=== PATIENT | female | born 1975 | race Caucasian/White ===

== ENCOUNTER 2016-12-27 09:12 | Day surgery (SDC) | payer OTHER ==
[~2016-12-27] VITALS: Ht 154.9 cm; Wt 77.1 kg
[2016-12-27] MEDS ORDERED: LIDOCAINE 2% 100 MG/5 ML UJET TP ONE (10:22)
[2016-12-27] MEDS: MIDAZOLAM 2 MG/2 ML VIAL ONE ×2 (10:50→10:59)
[2016-12-27] MEDS: fentaNYL 0.05 MG/ML VIAL ONE ×2 (10:51→10:59)
== END 2016-12-27 12:07 | disposition home or self-care (01) ==
LOC: MDS 09:12 → MMU 09:12 → MDS 12:07
PROVIDERS: ATTEND Internal Medicine Gastroenterology
DX: D12.3 Benign neoplasm of transverse colon (principal)
CPT/HCPCS: 45385; J2250; J3010

== ENCOUNTER 2020-01-03 08:44 | Day surgery (SDC) | payer OTHER ==
[~2020-01-03] VITALS: Ht 152.4 cm; Wt 72.6 kg
[2020-01-03] MEDS ORDERED: LIDOCAINE 2% 100 MG/5 ML UJET TP ONE (11:12)
[2020-01-03] MEDS ORDERED: fentaNYL 0.05 MG/ML VIAL ONE (11:12)
[2020-01-03] MEDS ORDERED: fentaNYL 0.05 MG/ML VIAL IVP ONE (11:45)
== END 2020-01-03 11:55 | disposition home or self-care (01) ==
LOC: MDS 08:44 → MMU 09:45 → MDS 11:55
PROVIDERS: ATTEND Internal Medicine Gastroenterology
DX: K62.5 Hemorrhage of anus and rectum (principal); E66.09 Other obesity due to excess calories; Z98.890 Other specified postprocedural states; Z88.0 Allergy status to penicillin; Z68.31 Body mass index [BMI] 31.0-31.9, adult
CPT/HCPCS: 45378; 81025; J3010